=== PATIENT | male | born 1940 | race Caucasian/White ===

== ENCOUNTER 2016-08-05 16:34 | Observation (INO) | payer OTHER, MEDICARE ==
--- NOTE | ~2016-08-05 | HP ---
History And Physical [place] [id number] [facility] [place]. [address] NAME: JUAN ANTONIO LEAL : 42 STATUS : DIS Mila PAT#: [id number] AGE: 76 ADM/REG DATE : 08/05/16 MR#: [id number] REPORT SERV DATE: 08/06/16 DICTATED BY: CHANCE STOVALL III DATE: 08/06/16 REPORT STATUS : Draft TRANSCRIBED BY: RENU DATE: 08/06/16 DATE OF ADMISSION: 08/05/2016 REASON FOR ADMISSION: Occluded suprapubic tube. HISTORY OF PRESENT ILLNESS: The patient is a 76-year-old white male with metastatic prostate cancer. He sees Dr. Rust periodically. He had a TURP several years ago that showed a large volume [place] grade 7 adenocarcinoma. He had a bilateral orchiectomy but refused radiation. He then developed metastasis on bone scan with a PSA of greater than 100. He now is in hospice and has a suprapubic tube due to a urethral misadventure in the hospital a year or two ago. He states the catheter had not been draining for several days and he was passing small amounts of urine through the penis. He has had no fever and really has not had a lot of pain. He was seen at the [facility] and the tube was cut. The ER doctor attempted to pass a wire and flushed the catheter. It was unsuccessful. The patient states that this tube was placed in January or early February and has not been changed. He actually had a cystoscopy by Dr. Rust in January that showed no stones or masses in the bladder. He does have a history of hydronephrosis and has had no flank pain and this has basically been observed giving his hospice status. PAST MEDICAL HISTORY: Includes hypertension, carcinoma of the prostate. He has had C-spine surgery, surgery on his left hip, and a TURP. He also has significant COPD. MEDICATIONS: 1. Albuterol. 2. Hydrocodone. 3. Ibuprofen. 4. Morphine. 5. Naproxen. 6. Nitroglycerin. In addition, he had a past medical history, he has coronary artery disease. ALLERGIES: HE HAS ALLERGIES TO ASPIRIN. SOCIAL HISTORY: He lives with his fiancee. Does not drink but has been a heavy smoker all his life. REVIEW OF SYSTEMS: Review of systems reveals chronic pain in his knees and multiple bony areas weight loss. and minimal mobility given the contractures in his legs. PHYSICAL EXAMINATION: VITAL SIGNS: On exam in the emergency room, his blood pressure is stable, pulse was 90. GENERAL: He was alert and oriented. The catheter was extended approximately 3 inches out of the skin, appeared to be a 14-Bulgarian silastic catheter and hemostat clamped on it. His abdomen was soft and nontender. Testicles were surgically absent. Phallus have a normal meatus, glans, and shaft. I did not do a rectal exam. The legs were fixed in flexion with a History And Physical [address] [place]. [address] NAME: JUAN ANTONIO LEAL : 42 STATUS : DIS Mila PAT#: [id number] AGE: 76 ADM/REG DATE : 08/05/16 MR#: [id number] REPORT SERV DATE: 08/06/16 DICTATED BY: CHANCE STOVALL III DATE: 08/06/16 REPORT STATUS : Draft TRANSCRIBED BY: MODL DATE: 08/06/16 good bit of muscle wasting. Laboratory was unavailable at the time of admission; however, his labs later showed a white count of 8.5, hemoglobin of 13, and creatinine of 1.17. Urinalysis revealed numerous wbc's and rbc's. IMPRESSION: The impression is that of an occluded suprapubic tube. The patient would not let me manipulate the tube in any way due to pain. Plan will be to sedate him and change the tube; if it proves to be difficult, we will do it in Interventional Radiology. He has occluded the tube in the past and we will try to upsize him to at least a 16 silastic catheter. I am going to give him Levaquin prior to manipulation. OB/MODL Chance Stovall III, M.D. / [id number] CC: Neto Sanchez III, M.D. John C House, M.D.
--- NOTE | ~2016-08-05 | HP ---
History And Physical [place] [address] [facility] [place]. [address] NAME: JUAN ANTONIO LEAL : 42 STATUS : DIS Mila PAT#: [id number] AGE: 76 ADM/REG DATE : 08/05/16 MR#: [id number] REPORT SERV DATE: 08/08/16 DICTATED BY: CHANCE STOVALL III DATE: 08/05/16 REPORT STATUS : Draft TRANSCRIBED BY: MODLizzeth DATE: 08/05/16 DATE OF ADMISSION: 08/05/2016 REASON FOR ADMISSION: Occluded SP tube. HISTORY OF PRESENT ILLNESS: The patient is a 76-year-old white male with metastatic prostate cancer in hospice. He apparently has metastatic bony mets and has been treated with bilateral orchiectomy with last PSA at Dr. Rust's notes was well over 100 with multiple bony mets. He apparently had a TURP several years ago and refused radiation. He has been under the care of Dr. Pereira and apparently, a suprapubic tube was placed in January. According to the patient, it has not been changed and frequently stopped up and stopped draining three or four days ago. He was passing small amounts of urine in the bladder. He denies having any fever. His other history includes CT scan showing right hydronephrosis of thick-walled bladder. He was seen at the [facility] ER and attempts were made to remove the catheter or change it. This was unsuccessful, so he was brought to [facility]. PAST MEDICAL HISTORY: Includes hypertension and carcinoma of the prostate. SURGERIES: Include TURP, hip surgery, and spine surgery. The patient could not give me much detail. MEDICATIONS: His medications were not sent with the patient and however, he was on morphine sulfate several times per day. ALLERGIES: HIS ONLY ALLERGY IS ASPIRIN. SOCIAL HISTORY: He is . He has been a very heavy smoker. REVIEW OF SYSTEMS: Mainly involve pain in the bones and nausea. PHYSICAL EXAMINATION: VITAL SIGNS: His initial blood pressure was around 110/60, pulse was 90 and regular. These pressures were done from the interventional lab. GENERAL: On my exam, he was forgetful, but could answer questions. NECK: Somewhat stiff, but not tender. LUNGS: Clear. He had a regular rate and rhythm without murmur or gallop. There was significant muscle wasting. ABDOMEN: Very small catheter with a hemostatic clamp to it. : Testicles are surgically absent, I could not do a rectal exam. EXTREMITIES: His legs were flexed and fixed. Apparently, no lab was sent from [facility]. I discussed his management with Dr. Mujica and we agreed to bring him to the [facility] interventional lab. Permit was signed by the next of kin and his catheter actually was removed after Versed in the balloon was deflated, but encrusted. A new tube, slightly larger, 16-Welsh was placed by Dr. Mujica over a wire and History And Physical [address] [address] NAME: JUAN ANTONIO LEAL : 42 STATUS : DIS Mila PAT#: [id number] AGE: 76 ADM/REG DATE : 08/05/16 MR#: [id number] REPORT SERV DATE: 08/08/16 DICTATED BY: CHANCE STOVALL III DATE: 08/05/16 REPORT STATUS : Draft TRANSCRIBED BY: MODL DATE: 08/05/16 the urine was purulent. He tolerated this well, but was having pain when he awakened and there was no record of when he last had his morphine sulfate. He will be taken to either the CDU or the Cardiac Short Stay, where we will obtain a urine culture, start him on an antibiotic. He was actually given Levaquin in the interventional suite. I am going to hold him for 24 hours to make sure he does not get a temperature from the manipulation and probably discharge him home in the next day or two. OB/MODL Chance Stovall III, M.D. / [id number] CC: Neto Sanchez III, M.D.
[~2016-08-05 16:34] MED LIST: FLOMAX4 PO; [UNRECOGNIZED DRUG - OTHER] PO
[2016-08-05 19:47] LABS: BASOPHILS 0.6 %; BASOPHILS ABSOLUTE 0.05 10/3/uL (0.0-0.16); EOSINOPHILS 1.9 %; EOSINOPHILS ABSOLUTE 0.16 10/3/uL (0.0-0.53); HEMATOCRIT 41.2 % (36.0-48.0); HEMOGLOBIN 13.1 g/dL (12.0-16.0); IMMATURE GRANULOCYTES 0.2 %; IMMATURE GRANULOCYTES ABSOLUTE 0.02 10/3/uL (0.0-0.11); LYMPHOCYTES 28.6 %; LYMPHOCYTES ABSOLUTE 2.44 10/3/uL (0.67-4.30); MANUAL DIFF NO %; MEAN CORPUS HGB CONC 31.8 g/dL (32.0-36.0); MEAN CORPUSCULAR HEMOGLOB 28.1 pg (26.0-34.0); MEAN CORPUSCULAR VOLUME 88.2 fL (80-100); MEAN PLATELET VOLUME 9.8 fL (9.2-13.0); MONOCYTES 6.1 %; MONOCYTES ABSOLUTE 0.52 10/3/uL (0.21-1.20); NEUTROPHILS 62.6 %; NEUTROPHILS ABSOLUTE 5.34 10/3/uL (2.02-8.40); PLATELET COUNT 367 10/3/uL (150-400); RBC DISTRIBUTION WIDTH 14.4 % (12.0-16.0); RED CELL COUNT 4.67 10/6/uL (4.0-5.6); WHITE BLOOD CELLS 8.5 10/3/uL (4.5-10.5)
[2016-08-05 19:59] LABS: BUN (BLOOD UREA NITROGEN) 24 MG/DL (6-23); CALCIUM, SERUM 8.6 MG/DL (8.5-10.4); CHLORIDE, SERUM 108 MMOL/L (96-112); CO2 (CARBON DIOXIDE) 29 MMOL/L (24-34); CREATININE 1.17 MG/DL (0.55-1.02); GFR AFRICAN AMERICAN 53 ML/MIN (>=60); GFR NON AFRICAN AMERICAN 46 ML/MIN (>=60); GLUCOSE, SERUM 86 MG/DL (60-99); POTASSIUM, SERUM 4.4 MMOL/L (3.5-5.3); SODIUM, SERUM 143 MMOL/L (135-148)
[2016-08-05 21:42] LABS: ASCORBIC ACID (UR NOT ORDER) NEG (NEG); BILIRUBIN, URINE NEGATIVE (NEG); KETONE, URINE NEGATIVE (NEG); LEUKOCYTE ESTERASE(NOT OR LARGE (NEG)
[2016-08-05 21:43] LABS: WBC (NOT ORDERED) (RFLEX) > 182 (0-5)
[2016-08-05] MEDS ORDERED: ALEVE220 MG PO (21:44)
[2016-08-05] MEDS ORDERED: ADVIL PO (21:45)
[2016-08-05] MEDS ORDERED: MSCONTIN PO (21:46)
[2016-08-05] MEDS ORDERED: NITROSTAT0.4 MG SL (21:47)
[2016-08-05] MEDS ORDERED: ALBUTEROL0.083 % INH (21:47)
[2016-08-05] MEDS ORDERED: NORCO1 TAB PO (21:47)
[2016-08-06] MEDS ORDERED: LEVAQUIN5T PO (11:28)
== END 2016-08-06 12:10 | disposition hospice, home (50) ==
LOC: CDU1 16:34 → CDU2 18:03 → CDU1 08-06 11:40
PROVIDERS: Urology
DX: T83.098A Other mechanical complication of other urinary catheter, initial encounter (principal); C79.51 Secondary malignant neoplasm of bone; I10 Essential (primary) hypertension; J44.9 Chronic obstructive pulmonary disease, unspecified; Z90.79 Acquired absence of other genital organ(s); Z88.6 Allergy status to analgesic agent; Z85.46 Personal history of malignant neoplasm of prostate; Z87.891 Personal history of nicotine dependence; Z79.891 Long term (current) use of opiate analgesic; Z79.899 Other long term (current) drug therapy; Z98.890 Other specified postprocedural states
CPT/HCPCS: 51705; 75984; 80048; 81001; 85025; 87077; 87086; 87186; 94640; 96374; 96376; 99152; A9270-GY; C1769; G0378; J1956; J2250; J3010; Q9967